=== PATIENT | male | born 1975 | race Two or more races ===

== ENCOUNTER → 2020-12-31 10:43 | Outpatient (BNVA) | payer OTHER, SELFPAY | PROVIDERS: Visit Provider Physician Assistant Medical | DX: M75.42 Impingement syndrome of left shoulder (principal); S80.02XA Contusion of left knee, initial encounter; W01.0XXA Fall on same level from slipping, tripping and stumbling without subsequent striking against object, initial encounter | CPT/HCPCS: 99202 ==

== ENCOUNTER → 2021-01-03 11:34 | Outpatient (BNVA) | payer OTHER, SELFPAY | PROVIDERS: Visit Provider Internal Medicine | DX: M25.812 Other specified joint disorders, left shoulder (principal) | CPT/HCPCS: 99213 ==

== ENCOUNTER → 2021-01-06 13:20 | Outpatient (BNVA) | payer OTHER, SELFPAY | PROVIDERS: Visit Provider Internal Medicine | DX: M24.812 Other specific joint derangements of left shoulder, not elsewhere classified (principal) | CPT/HCPCS: 99213 ==

== ENCOUNTER → 2021-01-13 10:53 | Outpatient (BNVA) | payer OTHER, SELFPAY | PROVIDERS: PCP Internal Medicine; Visit Provider Internal Medicine | DX: M24.812 Other specific joint derangements of left shoulder, not elsewhere classified (principal) | CPT/HCPCS: 99213 ==

== ENCOUNTER 2021-01-15 07:25 | Outpatient (REF) | payer OTHER, SELFPAY | END 2021-01-15 07:26 | disposition home or self-care (01) | LOC: HO.MRI 07:25 | PROVIDERS: Visit Provider Internal Medicine | DX: Z13.89 Encounter for screening for other disorder (principal) ==

== ENCOUNTER 2021-03-21 10:00 | Outpatient (RCR) | payer OTHER, MEDICAID, SELFPAY ==
--- NOTE | 2021-01-14 14:17 | MHC.PT.EP ---
[facility] [place] Office [place] Office [place] Office [address] Omid Chin [address] [phone] F: [phone] F: [phone] F: [phone] F: [phone] Physical Therapy Plan of Care Date of Evaluation: Date of Surgery: n/a Diagnosis: L rotator cuff impingement Assessment: Patient is a 45 year old R handed male who presents with s/s consistent with L shoulder impingement with radicular s/s. He works with daily job demands including walking, restraining and escorting as needed. Patient past medical history is unremarkable. Current impairments include pain, posture, increased tissue tension, ROM, strength, safety, independence, activity tolerance and functional mobility. Functional limitations include decreased ability to sleep, lift, dress, reach, hold, carry, negotiate stairs, and perform weight bearing activities.. Patient is motivated with good rehab potential. Skilled PT will address impairments and functional limitations in order to achieve goals. Frequency and Duration: The patient will be seen 2x/week for 5 weeks Short Term Goals: I with HEP - 2 weeks eliminate LS TP - 3 weeks c-spine arom Rotation to 50 b/l - 3 weeks Full shoulder AROM pain free - 3 weeks Showroom Consultant Goals: (-) impingement s/s - 5 weeks SPADI 40/130 or better - 5 weeks Strength 4/5 grossly - 5 weeks restore PLOF - 5 weeks Treatment Plan: Modalities to reduce pain, spasms and effusion. Manual therapy to restore motion and function. Therapeutic exercise to improve strength and flexibility. Neuromuscular re-education for posture and balance. Therapeutic activities to return to functional activities of daily living. Electronically signed by: Fred Low, PT Please sign and return to therapist. Thank you for your referral.
--- NOTE | 2021-03-21 17:06 | MHC.PT.DC ---
[facility] [place] Office [place] Office [place] Office [address] Omid Chin 140 [facility] [phone] F: [phone] F: [phone] F: [phone] F: [phone] Physical Therapy Discharge Report Diagnosis: L rotator cuff impingement Date of Surgery: n/a Date of Evaluation: 01/14/21 Date of Discharge: 03/21/21 Treatments to Date: 7 Cancellations to Date: 0 No Shows to Date: 0 Discharge Status: Improved Function Independent with HEP Discharge Summary: Brent has plateaued of his ROM and function; he is I with his HEP and will progress on his own and f/u with his MD. Electronically signed by: Randy Mohamud PT. Please sign and return to therapist. Thank you for your referral.
== END 2021-03-21 17:07 | disposition home or self-care (01) ==
LOC: HO.PTCHIC 10:00
PROVIDERS: PCP Internal Medicine; Visit Provider Internal Medicine
DX: M25.812 Other specified joint disorders, left shoulder (principal)
CPT/HCPCS: 97014; 97110; 97140; 97161; 97164